=== PATIENT | male | born 1950 | race African-American/Black ===

== ENCOUNTER 2017-02-12 07:54 | Day surgery (SDC) | payer MEDICARE, BC ==
--- NOTE | ~2017-02-12 | EGD ---
EGD REPORT [facility] [address] [address] NAME: NAVARRO MORALES : [birth year] STATUS : REG [facility]#: [id number] AGE: 66 ADM/REG DATE : 02/12/17 MR#: [id number] REPORT SERV DATE: 02/12/17 DICTATED BY: TAMIA JORDAN DATE: 02/12/17 REPORT STATUS : Draft [facility] DATE: 02/12/17 Pulmonology Patient Name: Navarro Morales Procedure Date: 02/12/2017 9:21 AM Date of : 1950 Attending MD: LOLA JORDAN MD Procedure Date No Time: 02/12/2017 Procedure: EBUS/NAVIGATION BRONCHOSCOPY Indications: RUL lung mass Providers: LOLA JORDAN MD Referring MD: RUTH COON, ROGE BURGOS MD Medicines: Lidocaine 2% 20 mL Complications: No immediate complications Procedure: Pre-Anesthesia Assessment: - A History and Physical has been performed. Patient meds and allergies have been reviewed. The risks and benefits of the procedure and the sedation options and risks were discussed with the patient. All questions were answered and informed consent was obtained. Patient identification and proposed procedure were verified prior to the procedure by the physician and the nurse in the pre-procedure area in the procedure room. Mental Status Examination: alert and oriented. Airway Examination: normal oropharyngeal airway. Respiratory Examination: clear to auscultation. CV Examination: normal and RRR, no murmurs, no S3 or S4. ASA Grade Assessment: III - A patient with severe systemic disease. After reviewing the risks and benefits, the patient was deemed in satisfactory condition to undergo the procedure. The anesthesia plan was to use general anesthesia. Immediately prior to administration of medications, the patient was re-assessed for adequacy to receive sedatives. The heart rate, respiratory rate, oxygen saturations, blood pressure, adequacy of pulmonary ventilation, and response to care were monitored throughout the procedure. The physical status of the patient was re-assessed after the procedure. - ASA Grade Assessment: III - A patient with severe systemic disease. After obtaining informed consent, the Bronchoscope was introduced through the mouth, via the endotracheal tube (the patient was intubated for the procedure) and advanced to the tracheobronchial tree. the BF [id number] was introduced through the mouth, via the endotracheal tube (the patient was intubated for the EGD REPORT [address] [address] NAME: NAVARRO MORALES : [birth year] STATUS : REG [facility] PAT#: [id number] AGE: 66 ADM/REG DATE : 02/12/17 MR#: [id number] REPORT SERV DATE: 02/12/17 DICTATED BY: TAMIA JORDAN DATE: 02/12/17 REPORT STATUS : Draft TRANSCRIBED BY: [employer] DATE: 02/12/17 procedure) and advanced to the tracheobronchial tree. The procedure was accomplished without difficulty. The patient tolerated the procedure well. Findings: The endotracheal tube is in good position. The visualized portion of the trachea is of normal caliber. The brant is sharp. The tracheobronchial tree was examined to at least the first subsegmental level. Bronchial mucosa and anatomy are normal; there are no endobronchial lesions, and no secretions. EBUS TBNA of lymph node level 11L x 4 passes for cytology EBUS TBNA of lymph node level 7 x 4 passes for cytology EBUS TBNA of lymph node level 11R x 4 passes for cytology Using SuperDimension Edge catheter 180, peripheral probe EBUS 17s, and fluoroscopy, I performed the following biopsies: RUL lung mass transbronchial needle aspirates x 4 passes for cytology RUL lung mass transbronchial brush biopsy x 2 pass for cytology RUL lung mass transbronchial forcep biopsies x 4 passes for histopathology Bronchoalveolar lavage was performed in the right upper lobe of the lung and sent for routine cytology. 180 mL of fluid were instilled. 30 mL were returned. The return was cellular. Impression: Rapid On-Site Evaluation (REGIS): Preliminary cytology is "adenocarcinoma" (final results are pending). Patient enrolled into Clinical Phase 1 LungVision Trial and [employer] Clinical Registry Trial. Recommendation: - Await test results. - Chest X-ray. - Complete pulmonary function tests to assess operability. - Refer to/consult with Thoracic Surgery. - PET scan. - MRI of the brain with and without contrast Attending Participation: I personally performed the entire procedure. LOLA JRODAN MD 02/12/2017 12:00 PM This report has been signed electronically. Number of Addenda: 0 Note Initiated On: 02/12/2017 9:21 AM [address] [address]
[~2017-02-12 07:54] MED LIST: LIPITOR40 PO
[2017-02-12 08:20] LABS: BASOPHILS 0.4 %; BASOPHILS ABSOLUTE 0.03 10/3/uL (0.0-0.16); EOSINOPHILS 2.6 %; EOSINOPHILS ABSOLUTE 0.18 10/3/uL (0.0-0.53); HEMATOCRIT 44.7 % (40.0-51.0); HEMOGLOBIN 14.9 g/dL (13.6-17.8); IMMATURE GRANULOCYTES 0.3 %; IMMATURE GRANULOCYTES ABSOLUTE 0.02 10/3/uL (0.0-0.11); LYMPHOCYTES 47.9 %; LYMPHOCYTES ABSOLUTE 3.28 10/3/uL (0.67-4.30); MANUAL DIFF NO %; MEAN CORPUS HGB CONC 33.3 g/dL (32.0-36.0); MEAN CORPUSCULAR HEMOGLOB 30.1 pg (26.0-34.0); MEAN CORPUSCULAR VOLUME 90.3 fL (80-100); MEAN PLATELET VOLUME 9.1 fL (9.2-13.0); MONOCYTES 8.6 %; MONOCYTES ABSOLUTE 0.59 10/3/uL (0.21-1.20); NEUTROPHILS 40.2 %; NEUTROPHILS ABSOLUTE 2.75 10/3/uL (2.02-8.40); PLATELET COUNT 282 10/3/uL (150-400); RBC DISTRIBUTION WIDTH 14.1 % (12.0-16.0); RED CELL COUNT 4.95 10/6/uL (4.7-6.1); WHITE BLOOD CELLS 6.9 10/3/uL (4.5-10.5)
[2017-02-12 08:25] LABS: INTERNATIONAL NORMAL RATI 1.1 UNITS (-); PARTIAL THROMBO TIME 31.4 SEC (22.5-37.2); PROTIME (NOT ORD) 13.9 SEC (12.0-14.5)
[2017-02-25] MEDS ORDERED: VITC500 PO (13:16)
[2017-02-25] MEDS ORDERED: PROBIOTIC PO (13:17)
== END 2017-02-12 23:59 | disposition home or self-care (01) ==
LOC: DMU 07:54
PROVIDERS: Internal Medicine
PROC: 07B74ZX Excision of Thorax Lymphatic, Percutaneous Endoscopic Approach, Diagnostic (ICD-10-PCS; principal; 2017-02-12 09:30)
PROC: 0B9C8ZX Drainage of Right Upper Lung Lobe, Via Natural or Artificial Opening Endoscopic, Diagnostic (ICD-10-PCS; 2017-02-12 09:30)
DX: C34.11 Malignant neoplasm of upper lobe, right bronchus or lung (principal); F17.210 Nicotine dependence, cigarettes, uncomplicated; E78.00 Pure hypercholesterolemia, unspecified; K64.9 Unspecified hemorrhoids; Z86.010 Personal history of colon polyps; Z79.899 Other long term (current) drug therapy; Z98.890 Other specified postprocedural states
CPT/HCPCS: 71010; 82962; 85025; 85610; 85730; 88112; 88172; 88173; 88305; 88333; 93005; A9270-GY; C1725; C1769; J2405; J2710; J3010

== ENCOUNTER 2017-02-27 06:30 | Inpatient (IN) | payer MEDICARE, BC ==
[2017-02-26 13:53] LABS: BASOPHILS 0.3 %; BASOPHILS ABSOLUTE 0.02 10/3/uL (0.0-0.16); EOSINOPHILS 1.4 %; EOSINOPHILS ABSOLUTE 0.09 10/3/uL (0.0-0.53); HEMATOCRIT 42.4 % (40.0-51.0); HEMOGLOBIN 14.4 g/dL (13.6-17.8); IMMATURE GRANULOCYTES 0.2 %; IMMATURE GRANULOCYTES ABSOLUTE 0.01 10/3/uL (0.0-0.11); LYMPHOCYTES 40.3 %; LYMPHOCYTES ABSOLUTE 2.57 10/3/uL (0.67-4.30); MEAN CORPUSCULAR VOLUME 88.3 fL (80-100); MEAN PLATELET VOLUME 9.6 fL (9.2-13.0); MONOCYTES ABSOLUTE 0.38 10/3/uL (0.21-1.20); NEUTROPHILS 51.8 %; NEUTROPHILS ABSOLUTE 3.31 10/3/uL (2.02-8.40); PLATELET COUNT 280 10/3/uL (150-400); WHITE BLOOD CELLS 6.4 10/3/uL (4.5-10.5)
[2017-02-26 13:54] LABS: MANUAL DIFF NO %
[2017-02-26 14:01] LABS: ASCORBIC ACID (UR NOT ORDER) 40 (NEG); BILIRUBIN, URINE NEGATIVE (NEG); INTERNATIONAL NORMAL RATI 1.1 UNITS (-); KETONE, URINE NEGATIVE (NEG); LEUKOCYTE ESTERASE(NOT OR NEG (NEG); PROTIME (NOT ORD) 13.7 SEC (12.0-14.5); WBC (NOT ORDERED) (RFLEX) < 1 (0-5)
[2017-02-26 14:14] LABS: A/G RATIO 1.1 (0.7-1.9); ALBUMIN 3.6 G/DL (3.5-5.0); ALKALINE PHOSPHATASE 105 U/L (45-117); BUN (BLOOD UREA NITROGEN) 20 MG/DL (6-23); CALCIUM, SERUM 9.1 MG/DL (8.5-10.4); CHLORIDE, SERUM 110 MMOL/L (96-112); CO2 (CARBON DIOXIDE) 29 MMOL/L (24-34); CREATININE 1.19 MG/DL (0.70-1.30); GFR AFRICAN AMERICAN 72 ML/MIN (>=60); GFR NON AFRICAN AMERICAN 62 ML/MIN (>=60); GLOBULIN 3.4 G/DL (2.5-4.1); GLUCOSE, SERUM 87 MG/DL (60-99); POTASSIUM, SERUM 4.5 MMOL/L (3.5-5.3); SGOT(AST) 20 U/L (5-40); SGPT(ALT) 21 U/L (5-65); SODIUM, SERUM 144 MMOL/L (135-148); TOTAL BILIRUBIN 0.3 MG/DL (0-1.2)
--- NOTE | ~2017-02-27 | OP ---
Record Of Operation [facility] [address] [place]. [address] NAME: BILL DENNISON : [birth year] STATUS : ADM IN PAT#: [id number] AGE: 66 ADM/REG DATE : 02/27/17 MR#: [id number] REPORT SERV DATE: 02/27/17 DICTATED BY: HUGO KINGSLEY JR. DATE: 02/27/17 REPORT STATUS : Draft TRANSCRIBED BY: [employer] DATE: 02/27/17 DATE OF PROCEDURE: 02/27/2017 PREOPERATIVE DIAGNOSIS: Non-small cell lung cancer (adenocarcinoma) right upper lobe, COPD, and hypercholesterolemia. POSTOPERATIVE DIAGNOSIS: Non-small cell lung cancer (adenocarcinoma) right upper lobe, COPD, and hypercholesterolemia. NAME OF OPERATION: Bronchoscopy, right thoracoscopy with lysis of adhesions, right upper lobectomy, complete mediastinal node dissection, boubacar stations 4R, 7, 9, 10R, 11R, intercostal nerve block. SURGEON: Hugo Kingsley M.D. RESIDENT SURGEON: Dr. Daljit Branch. FRAME STRAIGHTENER: Tu Morris and Judd Hartmann. ANESTHESIA: General endotracheal. FINDINGS: The patient was noted to have no endobronchial lesions or contraindications to proceeding on with surgery. Mucous secretions were evacuated from the airway. Upon exploration of the chest, he had dense adhesions where the apical bullous disease was adherent to the parietal pleura. This took an extra 60 minutes of dissecting out the adhesions and mobilizing the lung where we could begin the actual operation. Gross inspection confirmed the tumor to be well contained within the right upper lobe. Touch preps demonstrated this to be a non-small cell lung cancer. Final pathology is pending. There were a lot of granulomatous changes to the mediastinal nodes but nothing that looked related to the tumor. DETAILS OF OPERATION: After adequate general anesthesia, the patient was intubated. Bronchoscopy was performed noting no endobronchial lesions. There was no contraindications to resection. A left-sided double-lumen endotracheal tube was then placed. The patient was then positioned in the left lateral decubitus position. The right chest was then prepped and draped in a routine sterile fashion. A small incision was made overlying the lower intercostal space. A separate anterior trocar incision was also made. Through these two incision sites, the above findings were noted. Bipolar and hook cautery were utilized to take down the adhesions. The right upper lobe was densely adherent to the apex and posterolateral wall. Blunt dissection with electrocautery was the main stay of getting the adhesions taken down. This added an extra 60 minutes on to the case. Once we were able to fully mobilize the right lung, the inferior pulmonary ligament was then taken down. The hilar structures were dissected out. The right superior pulmonary vein was identified preserving the middle lobe branch. The venous portion to the right upper lobe was transected, again preserving the middle lobe branch. The arterial branches were divided with a vascular stapler. It was not a sole trunk but rather 2 separate branches for the Record Of Operation [place] [id number] [facility] [place]. [address] NAME: BILL DENNISON : [birth year] STATUS : ADM IN [facility]#: [id number] AGE: 66 ADM/REG DATE : 02/27/17 MR#: [id number] REPORT SERV DATE: 02/27/17 DICTATED BY: HUGO KINGSLEY JR. DATE: 02/27/17 REPORT STATUS : Draft TRANSCRIBED BY: TAWANNA DATE: 02/27/17 apical and anterior portions of the right upper lobe. There was a separate posterior descending branch as usual. The bronchus was then divided. The fissure was divided with multiple firings of JACKELIN stapler with tissue reinforcements. Specimen was placed within the specimen bag and withdrawn through the anterior trocar site. Dissecting the hilum was difficult secondary to granulomatous nodes being adherent to the pulmonary artery. Nodes from the right paratracheal subcarinal inferior pulmonary ligament, right main stem bronchus, and hilar regions were removed. Adequate hemostasis was obtained. The chest was thoroughly irrigated with sterile water. A 20-Kazakh chest tube was placed. The lung was reinflated. Intercostal nerve blocks were performed with ropivacaine. The trocar sites were closed with running Vicryl sutures. The skin was closed with running monofilament suture. A Dermabond dressing was applied and the procedure was terminated at this point. The patient tolerated the procedure well and taken back to the recovery room in stable condition. SEB/TAWANNA Hugo Kingsley Jr., M.D. / [id number] CC: Charlee Arita Jr., M.D. Nicholas Salt, M.D.
[~2017-02-27 06:30] MED LIST changes: +PROBIOTIC PO; +VITC500 PO
[2017-02-28 04:35] LABS: BASOPHILS 0 %; EOSINOPHILS 0 %; HEMATOCRIT 43.2 % (40.0-51.0); HEMOGLOBIN 14.4 g/dL (13.6-17.8); IMMATURE GRANULOCYTES 0.4 %; IMMATURE GRANULOCYTES ABSOLUTE 0.04 10/3/uL (0.0-0.11); LYMPHOCYTES 13.5 %; LYMPHOCYTES ABSOLUTE 1.54 10/3/uL (0.67-4.30); MEAN CORPUS HGB CONC 33.3 g/dL (32.0-36.0); MEAN CORPUSCULAR HEMOGLOB 29.6 pg (26.0-34.0); MEAN CORPUSCULAR VOLUME 88.7 fL (80-100); MEAN PLATELET VOLUME 9.7 fL (9.2-13.0); MONOCYTES 10.3 %; MONOCYTES ABSOLUTE 1.17 10/3/uL (0.21-1.20); NEUTROPHILS 75.8 %; NEUTROPHILS ABSOLUTE 8.66 10/3/uL (2.02-8.40); PLATELET COUNT 264 10/3/uL (150-400); RBC DISTRIBUTION WIDTH 13.9 % (12.0-16.0); RED CELL COUNT 4.87 10/6/uL (4.7-6.1)
[2017-02-28 04:39] LABS: MANUAL DIFF NO %; WHITE BLOOD CELLS 11.4 10/3/uL (4.5-10.5)
[2017-02-28 04:49] LABS: BUN (BLOOD UREA NITROGEN) 18 MG/DL (6-23); CALCIUM, SERUM 8.9 MG/DL (8.5-10.4); CHLORIDE, SERUM 108 MMOL/L (96-112); CREATININE 1.29 MG/DL (0.70-1.30); GFR AFRICAN AMERICAN 66 ML/MIN (>=60); GFR NON AFRICAN AMERICAN 57 ML/MIN (>=60); POTASSIUM, SERUM 4.1 MMOL/L (3.5-5.3); SODIUM, SERUM 139 MMOL/L (135-148)
[2017-02-28 04:50] LABS: CO2 (CARBON DIOXIDE) 22 MMOL/L (24-34); GLUCOSE, SERUM 144 MG/DL (60-99)
[2017-02-28] MEDS ORDERED: MIRALAX POWDER1 PKT PO (14:30)
[2017-02-28] MEDS ORDERED: PCET PO (14:31)
== END 2017-02-28 16:32 | disposition home or self-care (01) | DRG 164 ==
LOC: SDC/OF 06:30 → PACU 13:06 → 5NO 15:06
PROVIDERS: Thoracic Surgery (Cardiothoracic Vascular Surgery)
DX: C34.11 Malignant neoplasm of upper lobe, right bronchus or lung (principal); J95.811 Postprocedural pneumothorax; J44.9 Chronic obstructive pulmonary disease, unspecified; J98.4 Other disorders of lung; E78.00 Pure hypercholesterolemia, unspecified
CPT/HCPCS: 36415; 71020; 80048; 80053; 81001; 82962; 83036; 85025; 85610; 86850; 86900; 86901; 86920; 87641; 88305; 88307; 88309; 88333; 93005; 94640; A9270-GY; J0690; J2250; J2370; J2405; J2710; J2795; J3010

== ENCOUNTER 2017-03-12 22:01 | Emergency (ER) | payer MEDICARE, BC ==
[2017-03-12 20:52] LABS: BASOPHILS 0.5 %; BASOPHILS ABSOLUTE 0.04 10/3/uL (0.0-0.16); EOSINOPHILS 2.1 %; EOSINOPHILS ABSOLUTE 0.16 10/3/uL (0.0-0.53); ER CBC TAT 0 Hrs 10 Mins; HEMATOCRIT 41.8 % (40.0-51.0); HEMOGLOBIN 14.1 g/dL (13.6-17.8); IMMATURE GRANULOCYTES 0.4 %; IMMATURE GRANULOCYTES ABSOLUTE 0.03 10/3/uL (0.0-0.11); LYMPHOCYTES 40.9 %; LYMPHOCYTES ABSOLUTE 3.08 10/3/uL (0.67-4.30); MEAN CORPUS HGB CONC 33.7 g/dL (32.0-36.0); MEAN CORPUSCULAR HEMOGLOB 29.7 pg (26.0-34.0); MEAN PLATELET VOLUME 9.1 fL (9.2-13.0); MONOCYTES 6.2 %; MONOCYTES ABSOLUTE 0.47 10/3/uL (0.21-1.20); NEUTROPHILS 49.9 %; NEUTROPHILS ABSOLUTE 3.75 10/3/uL (2.02-8.40); RBC DISTRIBUTION WIDTH 13.4 % (12.0-16.0); RED CELL COUNT 4.75 10/6/uL (4.7-6.1); WHITE BLOOD CELLS 7.5 10/3/uL (4.5-10.5)
[2017-03-12 20:53] LABS: MANUAL DIFF NO %; PLATELET COUNT 378 10/3/uL (150-400)
[2017-03-12 21:02] LABS: INTERNATIONAL NORMAL RATI 1.1 UNITS (-); PARTIAL THROMBO TIME 30.6 SEC (22.5-37.2); PROTIME (NOT ORD) 13.8 SEC (12.0-14.5)
[2017-03-12 21:09] LABS: BUN (BLOOD UREA NITROGEN) 17 MG/DL (6-23); CALCIUM, SERUM 9.1 MG/DL (8.5-10.4); CHEST PAIN PROFILE TAT 0 Hrs 27 Mins; CHLORIDE, SERUM 109 MMOL/L (96-112); CO2 (CARBON DIOXIDE) 30 MMOL/L (24-34); GFR AFRICAN AMERICAN 65 ML/MIN (>=60); GFR NON AFRICAN AMERICAN 56 ML/MIN (>=60); GLUCOSE, SERUM 91 MG/DL (60-99); POTASSIUM, SERUM 4.5 MMOL/L (3.5-5.3); SODIUM, SERUM 142 MMOL/L (135-148); TROPONIN I <0.02 NG/ML (<0.05)
[~2017-03-12 22:01] MED LIST changes: +MIRALAX POWDER1 PKT PO; +PCET PO
== END 2017-03-12 22:34 | disposition home or self-care (01) ==
LOC: ER 22:01
PROVIDERS: Hospitalist
DX: I10 Essential (primary) hypertension (principal); M79.621 Pain in right upper arm; J44.9 Chronic obstructive pulmonary disease, unspecified; E78.00 Pure hypercholesterolemia, unspecified; Z87.891 Personal history of nicotine dependence; Z79.891 Long term (current) use of opiate analgesic; Z79.899 Other long term (current) drug therapy
CPT/HCPCS: 71020; 80048; 83735; 84484; 85025; 85610; 85730; 93005; 93971; 99284